=== PATIENT | male | born 1950 | race Caucasian/White ===

== ENCOUNTER 2023-02-06 00:37 | Emergency (ER) | payer MEDICARE, BC, SELFPAY ==
[2023-02-06 00:43] VITALS: BP 145/78; PULSE 74; RESP 18; TEMP 36.6; O2SAT 99; BMI 30.1
--- NOTE | 2023-02-06 01:01 | ED_ITS ---
HPI - General Adult General Date Seen: 02/06/23 Chief complaint: Skin/Abscess/Foreign Body Stated complaint: skin redness Time Seen by Provider: 02/06/23 00:48 Source: patient Mode of arrival: ambulatory Limitations: no limitations History of Present Illness HPI narrative: Patient is a 72-year-old male here for evaluation of rash. I saw him 1 month ago when he had found a tick attached for an indeterminate amount of time. He believe this to be a wood tick, but had some redness around the bite and was concerned about possible Lyme. I gave him prophylactic doxycycline and did do Lyme testing which was negative. That redness resolved. Tonight he says at bedtime he developed redness on his right forearm in the general vicinity of where that tick bite was, associated with splotchy redness on his feet and a line across his lower abdomen. All these areas were itchy. The feet have improved. He has some spots on his arms and hands as well though the hands are not itchy. He does say his hands feel kind of tight. No breathing difficulties. No exposures or new products that he is aware of. He used some topical Benadryl at home which was somewhat helpful. Related Data Home Medications Medication Instructions Recorded Confirmed atorvastatin 20 mg tablet 20 mg PO QPM 01/09/23 01/09/23 lisinopril 40 mg tablet 40 mg PO DAILY 01/09/23 01/09/23 metoprolol succinate 25 mg 25 mg PO DAILY 01/09/23 01/09/23 tablet,extended release 24 hr oxymetazoline 0.05 % nasal spray 2 spray intranasal BID 01/09/23 01/09/23 (12 Hour Nasal Relief Sweeny) Allergies Allergy/AdvReac Type Severity Reaction Status Date / Time No Known Drug Allergies Allergy Verified 02/06/23 00:45 [facility] Social History Smoking Status: Never smoker Do you use any of these nicotine containing products: Smokeless Tobacco Second hand tobacco smoke exposure: No How often do you have a drink containing alcohol: monthly or less AUDIT-C Alcohol total score: 1 Non-prescribed substance use: denies use Exam Narrative: Exam Narrative: Vital signs reviewed In general, alert, nontoxic male. ENT: Mucous membranes moist. No intraoral lesions. Lungs: Clear. Breathing easily. Skin: He has a raised erythematous rash, plaque like, most notable over the right forearm but scattered patches on his upper extremities bilaterally including the left forearm and elbow. He has a few small areas of redness on his palms which are not raised. He has a linear area that is raised and slightly red exactly across his lower abdomen where his underwear hits. I do not see any evidence of burrowing on his hands. Const: Vital Signs, click to edit/add: Vital Signs - 24 hr 02/06/23 00:43 Temperature 97.8 F Pulse Rate [Right Pulse Oximeter] 74 Respiratory Rate 18 Blood Pressure [Ri ght Upper Arm] 145/78 H Pulse Oximetry 99 Oxygen Delivery Me thod Room Air Documenting provider has reviewed patient's vital signs: yes Course Course Hospital Course: At this point etiology of this rash is not entirely clear to me, some parts of it look hive-like although he has other areas such as on the palms of his hands which are not raised and do not look like urticaria at this point. The area on his abdomen is very linear and looks more like a contact reaction. Scabies is considered but felt to be unlikely. Reviewed with him that based on his very low risk exposure a month ago with the tick and negative Lyme testing that I think this likely does not represent Lyme disease. I do not see anything that looks consistent with erythema migrans. The area on his right forearm is amorphous in shape, not round nor targetoid. For now I suggested symptomatic treatment well we see how he does over the next couple of days. If this is not resolving then I would like him to follow up in clinic for repeat evaluation. Return at any time for worsening. Vital Signs Vital signs: Initial Vital Signs Temperature 97.8 F 02/06/23 00:43 Temperature Source Temporal Artery Scan 02/06/23 00:43 Pulse Rate 74 02/06/23 00:43 Respiratory Rate 18 02/06/23 00:43 Blood Pressure 145/78 H 02/06/23 00:43 Blood Pressure Mean 100 02/06/23 00:43 Blood Pressure Position Sitting 02/06/23 00:43 Pulse Oximetry 99 02/06/23 00:43 Oxygen Delivery Method Room Air 02/06/23 00:43 Vital Signs Temperature 97.8 F 02/06/23 00:43 Pulse Rate 74 02/06/23 00:43 Respiratory Rate 18 02/06/23 00:43 Blood Pressure 145/78 H 02/06/23 00:43 Pulse Oximetry 99 02/06/23 00:43 Oxygen Delivery Method Room Air 02/06/23 00:43 Temperature 97.8 F 02/06/23 00:43 Pulse Rate 74 02/06/23 00:43 Respiratory Rate 18 02/06/23 00:43 Blood Pressure 145/78 H 02/06/23 00:43 Pulse Oximetry 99 02/06/23 00:43 Oxygen Delivery Method Room Air 02/06/23 00:43 Discharge Plan Discharge Clinical Impression: Dermatitis Patient Disposition: Home, Self-Care Condition: Stable Instructions: Dermatitis (ED) Additional Instructions: Benadryl 4 times daily or a nonsedating antihistamine such as Zyrtec 1-2 times daily. If not improving over the next 1-2 days, follow up in clinic. Return at any time for worsening such as development of blisters, fever, etcetera. Prescriptions: No Action atorvastatin 20 mg tablet 20 mg PO QPM metoprolol succinate 25 mg tablet extended release 24 hr 25 mg PO DAILY lisinopril 40 mg tablet 40 mg PO DAILY oxymetazoline [12 Hour Nasal Relief Sweeny] 0.05 % spray,non-aerosol 2 spray intranasal BID Follow Up/Referrals: Provider,Not a Local [Primary Care Provider] - Stand Alone Forms: [employer] Info Instructions
[2023-02-06] MEDS: diphenhydrAMINE 25 MG CAPSULE 50 MG PO (01:08)
[2023-02-06 01:14] VITALS: BP 135/74; PULSE 84; RESP 18; TEMP 36.7; O2SAT 99
== END 2023-02-06 01:13 | disposition home or self-care (01) ==
PROVIDERS: Emergency Provider Emergency Medicine
DX: L30.9 Dermatitis, unspecified (principal)
CPT/HCPCS: 99282; 99283; A9270

== ENCOUNTER 2024-01-02 07:53 | Outpatient (RCR) | payer MEDICARE, BC, SELFPAY | END 2024-05-01 23:59 | disposition home or self-care (01) | PROVIDERS: Visit Provider Physician Assistant Medical | DX: Z53.20 Procedure and treatment not carried out because of patient's decision for unspecified reasons (principal) ==

== ENCOUNTER 2024-05-11 07:51 | Outpatient (CLI) | payer MEDICARE, BC, SELFPAY | END 2024-05-11 07:52 | disposition home or self-care (01) | LOC: INJ CL 07:53 | PROVIDERS: PCP Physician Assistant Medical; Visit Provider Family Medicine | DX: M54.16 Radiculopathy, lumbar region (principal); M51.36 Other intervertebral disc degeneration, lumbar region | CPT/HCPCS: 62323; J0702; Q9966 ==

== ENCOUNTER 2025-02-21 08:39 | Emergency (ER) | payer MEDICARE, BC, SELFPAY ==
--- OUTSIDE RECORDS SUMMARY | 2025-02-21 08:41 | XMS_ITS | Clinical Summary ---
Author Organization [facility] Address [address] [place] [id number] Care Team Providers Care Facilities Project Manager Name Role Phone Jesi Wen Primary Care Provider Allergies Active Allergy Reactions Criticality Noted Date Comments Amlodipine Rash 03/05/2019 Niacin *Unknown 02/04/2016 Bupropion *Unknown 02/04/2016 Medications multivitamin (MVI) tablet Take 1 tablet by mouth once daily. 0 6 Active aspirin (ECOTRIN) 81 mg enteric coated tablet Take 1 tablet by mouth once daily with a meal. 0 6 Active atorvastatin (LIPITOR) 40 mg tabletIndications: Other hyperlipidemia Take 1 Tablet (40 mg) by mouth at bedtime. 90 Tablet 3 4 Active metoprolol succinate (TOPROL XL) 25 mg Sustained-Release tabletIndications: HTN (hypertension) Take 1 Tablet (25 mg) by mouth once daily. 90 Tablet 3 4 Active oxymetazoline (Afrin, oxymetazoline,) 0.05 % nasal spray Inhale 1 [place] into affected nostril(s) two times daily. Active WalkerIndications: Postoperative pain after spinal surgery Walker with front wheels for home use for 3 months. 1 Each 4 Active lisinopriL (PRINIVIL; ZESTRIL) 40 mg tabletIndications: Secondary hypertension with goal blood pressure less than 140/90 Take 1 Tablet (40 mg) by mouth once daily. 90 Tablet 3 4 Active hydroCHLOROthiazid e 25 mg tabletIndications: HTN (hypertension) Take 1 Tablet (25 mg) by mouth once daily. 90 Tablet 1 5 Active hydroCHLOROthiazid e 25 mg tabletIndications: HTN (hypertension) Take 1 Tablet (25 mg) by mouth once daily. 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 06/16/2016 Hypercalcemia 02/05/2016 Basal cell carcinoma 02/05/2016 HTN, goal below 140/90 Hyperlipidemia Family history of colon cancer Overview (02/04/2016): father Allergic rhinitis Tobacco user Overview (02/04/2016): chewing tobacco since 1979, uses two tins/week Resolved Problems Problem Noted Date Diagnosed Date Resolved Date HTN, goal below 140/90 02/03 Encounters Date Type Department Care Team Description 02/03/2025 Refill [facility] [address] [place] [address] Jesi Wen PA Refill Request (Hydrochlorothiazide) from Last 3 Months Immunizations Immunization Administration Dates Next Due Amb Influenza, Inact (High-d ose Quadrivalent) (Flu Clinic Only) 05/21/2020 Dtap Unspecified Formulation 08/01/2008 Influenza, High-dose Inactivated 019,06/09/2018,05/19/2017,2015 Influenza, High-dose Quadriv alent Inactivated 05/17/2023,05/13/2022,05/22/2021 Influenza, Inactivated IIV3 (Age 65+ Years) Preserv Free 06/08/2024 Pneumococcal Poly,23-Valent (Pneumovax) 02/14/2018 Pneumococcal conj 13-Valent (Prevnar 13) 02/02/2017 Tdap 03/28/2023 Tdap, Unspecified 08/01/2008 Zoster (Shingrix-RZV, recombinant) 06/12/2023, Zoster (Zostavax-ZVL, live) 02/16/2011 Family History Medical History Relation Name Comments Cancer Brother 1 lung cancer Diabetes Brother 2 likely secondar y to lung cancer treatment Cancer-colon Father Diabetes Mother Heart Disease Mother Relation Name Status Comments Brother 1 Brother 2 Father colon cancer Mother heart disease, diabetes Social History Tobacco Use Types Packs/Day Years Used Date Smoking Tobacco: Former Cigarettes 1.5 15 0 02/02/1966 - 02/02/1979 Smokeless Tobacco: Current Snuff, Chew Tobacco Cessation:Ready to Q uit: Not Asked; Counseling Given: Not Answered Comments:none since Tuesday Alcohol Use Standard Drinks/Week Comments Yes 7 (1 standard drink = 0.6 oz pur e alcohol) PHQ-2 Answer Date Recorded PHQ-2 TOTAL SCORE 0 04/16/2024 Social Connections Answer Date Recorded Do you often feel lonely or isolated from those around you? 0 08/13/2024 Financial Resource Strain Answer Date R ecorded Difficulty of Paying Living Expenses 3 04/16/2024 Difficulty of Paying Living Expenses Not on file 04/16/2024 Food Insecurity Answer Date Recorded Do you worry your food will run out before you are able to buy more? 1 08/13/2024 Transportation Needs Answer Date Record ed Does lack of transportation keep you from medica l appointments? 1 08/13/2024 Does lack of transportation keep you from work, meetings or getting things that you need? 1 08/13/2024 Housing Stability Answer Date Recorded What is your housing situation today? 1 08/13/2024 Interpersonal Safety Answer Date Record ed Are you being hit, kicked, p ushed or yelled at (see row info)? No 08/13/2024 Interpersonal Safety Abuse 12 - 18 Not on file 08/13/2024 Interpersonal Safety Ambulatory Vulnerability No t on file 08/13/2024 Utilities Answer Date Recorded Do you have trouble paying f or utilities (for example, heat, electricity, water, phone)? 1 08/13/2024 Sex and Gender Information Value Date Recorded Sex Assigned at Not on file Legal Sex Male 10:50 AM CDT Gender Identity Not on file Sexual Orientation Not on file Occupation Industry Job Start Date Job End Date retired Not on file Not on file Not on file Obstetrics History Last Filed Vital Signs Vital Sign Reading Time Taken Comments Blood Pressure 138/80 09/21/2024 8:29 AM EXT JS DEVELOPER Pulse 66 09/21/2024 8:13 AM EXT JS DEVELOPER Temperature 36.7 C (98 F) 08/14/2024 12:00 PM EXT JS DEVELOPER Respiratory Rate 16 08/14/2024 12:00 PM EXT JS DEVELOPER Oxygen Saturation 99% 08/21/2024 9:41 AM EXT JS DEVELOPER Inhaled Oxygen Concentration - - Weight 80.7 kg (178 lb) 09/21/2024 8:11 AM EXT JS DEVELOPER Height 157.5 cm (5' 2) 08/13/2024 10:31 AM EXT JS DEVELOPER Body Mass Index 32.56 08/13/2024 10:31 AM EXT JS DEVELOPER Plan of Treatment Health Maintenance Due Date Last Done Comments RSV vaccine for adults or (1 - 1-dose 75+ series) 2024 COVID-19 vaccine series (2023- season) 2024 06/08/2024, 05/25/2023, 06/04/2022, Additional history exists Colonoscopy through age 75 04/10/202504/10, 04/10/2020, 04/10/2020, Additional history exists Depression screening for age 12+ 04/16/2025 04/16/2024, 04/16/2024, 04/13/2023, Additional history exists Medicare Wellness for age 65+ 04/17/2025 04/16/2024, 04/13/2023, 04/12/2022, Additional history exists BMI (ht and wt on same day) for age 18+ 08/06/2025 08/06/2024, 04/16/2024, 04/12/2022, Additional history exists Lipids for age 45-75 04/16/2029 04/16/2024, 04/13/2023, 04/12/2022, Additional history exists Tetanus booster 03/28/2033 03/28/2023, 08/01/2008 Hepatitis C screening for age 18-79 Completed 02/04/2016 Pneumococcal series for age 50+ Completed 02/14/2018, 02/02/2017 ([place]) Tdap Completed 03/28/2023, 08/01/2008 Zoster (shingles) series for age 50+ Completed 06/12/2023, 04/11/2023, 02/16/2011 Influenza Vaccine Completed 06/08/2024, , 05/25/2019, Additional history exists Hepatitis B series for 19+ Aged Out N o longer eligible based on patient's age to complete this topic Procedures Procedure Name Priority Date/Time Associated Diagnosis Comments LIPID PANEL W REFLEX MEASURED LDL Routine 04/16/2024 9:07 AM CDT Other hyperlipidemia COLONOSCOPY SCREENING Routine 04/10/2020 9:57 AM CDT History of colon polyps ANTI HCV Routine 02/04/2016 9:24 AM CDT Need for hepatitis C screening test from Last 3 Months or Most Recently Relevant to Health Maintenance Results * LIPID PANEL W REFLEX MEASURED LDL (04/16/2024 9:07 AM CDT) CHOLESTEROL,TOTAL 151 100 - 199 mg/dL 04/16/2024 6:58 PM CDT [facility] Comment: Cholesterol, Total Reference Ranges Desirable <200 mg/dL Borderline 200-239 mg/dL High >=240 mg/dL TRIGLYCERIDES 110 <150 mg/dL 04/16/2024 6:58 PM CDT [facility] HDL CHOLESTEROL 56 >40 mg/dL 6:58 PM CDT [facility] NON-HDL CHOLESTEROL 95 <145 mg/dl 04/16/2024 6:58 PM CDT [facility] CHOL/HDL RATIO 2.70 <4.50 04/16/2024 6:58 PM CDT [facility] LDL CHOLESTEROL 73 <=130 mg/dL 04/16/2024 6:58 PM CDT [facility] VLDL CHOLESTEROL 22 <=30 mg/dL 04/16/2024 6:58 PM CDT [facility] PROVIDER ORDERED STATUS RANDOM 04/16/2024 6:58 PM CDT [facility] Blood BLOOD SPECIMEN / Unknown Venipuncture / Unknown 04/16/2024 9:07 AM CDT 04/16/2024 9:07 AM CDT Jesi SEPULVEDA CHEMISTRY Final R esult Performing Organization Address City/[facility]/ZIP Co de Phone Number [facility] [address] [place] [address], * COLONOSCOPY SCREENING (04/10/2020 9:57 AM CDT) Jesi SEPULVEDA GI PROCEDURE ORD Final Result * ANTI HCV [51080.2] (02/04/2016 9:24 AM CDT) HEPATITIS C ANTIBODY Non-Reacti ve Non-Reacti ve 02/04/2016 3:20 PM CDT [facility] Blood specimen (specimen) BLOOD SPECIMEN / Unknown Venipuncture / Unknown 02/04/2016 9:24 AM CDT 02/04/2016 9:24 AM CDT Narrative [facility] - 02/04/2016 3:20 PM CDT Antibodies to HCV not detected; does not exclude the possibility of exposure to HCV. Sandhya Walden MD SEND OUTS Final Resu lt Performing Organization Address City/[facility]/ZIP Co de Phone Number [facility] [address] [place] [address], from Last 3 Months or Most Recently Relevant to Health Maintenance Insurance [employer] BLUE MR PB ONLY MEDICARE PART B HB ONLY MEDICARE PART A HB ONLY [employer] BLUE HB ONLY Advance Directives * Full Code (Latest Code Status on File) Date Activated Date Inactivated Comments 08/13/2024 5:10 PM 08/14/2024 4:30 PM Question Answer Comments Code Status Discussion: Other * Full Code Date Activated Date Inactivated Comments 08/13/2024 10:07 AM 08/13/2024 5:10 PM Question Answer Comments Code Status Discussion: Unable to Assess Preferences, Provider to review later Care Teams Facilities Project Manager Relationship Specialty Start Date End Date Jesi Wen [place] [address] [place] [address] PCP - General Physician Loss Prevention Operations Manager 02/14/18
[2025-02-21 08:42] VITALS: BP 163/76; PULSE 101; RESP 16; TEMP 36.6; O2SAT 98; BMI 32.0
--- NOTE | 2025-02-21 08:55 | ED.GENADULT ---
HPI - General Adult General Chief complaint: Insect Bite Stated complaint: wood thick bite, is concern about the thick bite Time Seen by Provider: 02/21/25 08:49 Source: patient Mode of arrival: ambulatory Limitations: no limitations History of Present Illness HPI narrative: Leticia 74-year-old male presenting today with a rash after a tick bite. Patient pulled a tick off of his mons pubis 2 days ago and has since noticed a rash. Denies systemic symptoms. Related Data Home Medications ?Medication ?Instructions ?Recorded ?Confirmed lisinopril 40 mg tablet 40 mg PO DAILY 01/09/23 02/21/25 metoprolol succinate 25 mg 25 mg PO DAILY 01/09/23 02/21/25 tablet,extended release 24 hr oxymetazoline 0.05 % nasal spray 2 spray intranasal BID 01/09/23 01/09/23 (12 Hour Nasal Relief Ada) aspirin 81 mg tablet,delayed 81 mg PO DAILY 02/21/25 02/21/25 release (Adult Aspirin Regimen) atorvastatin 40 mg tablet 40 mg PO QPM 02/21/25 02/21/25 hydrochlorothiazide 25 mg tablet 25 mg PO DAILY 02/21/25 02/21/25 Previous Rx's ?Medication ?Instructions ?Recorded doxycycline hyclate 100 mg capsule 100 mg PO BID 10 days #20 caps 02/21/25 Allergies Allergy/AdvReac Type Severity Reaction Status Date / Time No Known Drug Allergies Allergy Verified 02/21/25 08:46 Review of Systems Status of ROS: Reports: 6 or more systems reviewed and unremarkable except as noted in History and below [facility] Medical History Basal cell carcinoma ?C44.91 - Basal cell carcinoma of skin, unspecified (ICD-10) Hypercalcemia ?E83.52 - Hypercalcemia (ICD-10) Thrombophlebitis of superficial veins of right lower extremity ?I80.01 - Phlebitis and thrombophlebitis of superficial vessels of right lower extremity (ICD-10) Umbilical hernia without obstruction and without gangrene ?K42.9 - Umbilical hernia without obstruction or gangrene (ICD-10) Former tobacco use ?Z87.891 - Personal history of nicotine dependence (ICD-10) Hyperlipidemia ?E78.5 - Hyperlipidemia, unspecified (ICD-10) HTN (hypertension) ?I10 - Essential (primary) hypertension (ICD-10) History of colon polyps ?Z86.010 - Personal history of colonic polyps (ICD-10) Crush injury ?T14.8XXA - Other injury of unspecified body region, initial encounter (ICD-10) Allergic rhinitis ?J30.9 - Allergic rhinitis, unspecified (ICD-10) Surgical History History of colonoscopy ?Z98.890 - Other specified postprocedural states (ICD-10) History of appendectomy ?Z90.49 - Acquired absence of other specified parts of digestive tract (ICD-10) Social History Smoking Status: Former smoker Do you use any of these nicotine containing products: Smokeless Tobacco Second hand tobacco smoke exposure: No How often do you have a drink containing alcohol: monthly or less AUDIT-C Alcohol total score: 1 Non-prescribed substance use: denies use Exam Narrative: Exam Narrative: Well-nourished well-developed patient in no acute distress. Alert and oriented. Answers questions appropriately. Patient has a bull's-eye rash consistent with erythema migrans on the left mons pubis. Const: Vital Signs, click to edit/add: Vital Signs - 24 hr 02/21/25 08:42 Temperature 97.8 F Pulse Rate [Right Pulse Oximeter] 101 H Respiratory Rate 16 Blood Pressure [Ri ght Upper Arm] 163/76 H Pulse Oximetry 98 Oxygen Delivery Me thod Room Air Course Vital Signs Vital signs: Initial Vital Signs Temperature 97.8 F 02/21/25 08:42 Temperature Source Temporal Artery Scan 02/21/25 08:42 Pulse Rate 101 H 02/21/25 08:42 Pulse Rhythm Regular 02/21/25 08:42 Pulse Strength 3+ Normal 02/21/25 08:42 Respiratory Rate 16 02/21/25 08:42 Blood Pressure 163/76 H 02/21/25 08:42 Blood Pressure Mean 105 02/21/25 08:42 Blood Pressure Position Sitting 02/21/25 08:42 Pulse Oximetry 98 02/21/25 08:42 Oxygen Delivery Method Room Air 02/21/25 08:42 Vital Signs Temperature 97.8 F 02/21/25 08:42 Pulse Rate 101 H 02/21/25 08:42 Respiratory Rate 16 02/21/25 08:42 Blood Pressure 163/76 H 02/21/25 08:42 Pulse Oximetry 98 02/21/25 08:42 Oxygen Delivery Method Room Air 02/21/25 08:42 Temperature 97.8 F 02/21/25 08:42 Pulse Rate 101 H 02/21/25 08:42 Respiratory Rate 16 02/21/25 08:42 Blood Pressure 163/76 H 02/21/25 08:42 Pulse Oximetry 98 02/21/25 08:42 Oxygen Delivery Method Room Air 02/21/25 08:42 Medical Decision Making MDM Narrative Medical decision making narrative: 74-year-old male with erythema migrans status post tick bite. Will treat with doxycycline for 10 days. Discharge Plan Discharge Clinical Impression: Tick bite Patient Disposition: Home, Self-Care Condition: Stable Additional Instructions: Take all antibiotics as instructed. Take on a full stomach and avoid sun exposure. Prescriptions: New doxycycline hyclate 100 mg capsule 100 mg PO BID 10 Days Qty: 20 0RF No Action metoprolol succinate 25 mg tablet extended release 24 hr 25 mg PO DAILY lisinopril 40 mg tablet 40 mg PO DAILY oxymetazoline [12 Hour Nasal Relief Ada] 0.05 % spray,non-aerosol 2 spray intranasal BID atorvastatin 40 mg tablet 40 mg PO QPM hydrochlorothiazide 25 mg tablet 25 mg PO DAILY aspirin [Adult Aspirin Regimen] 81 mg tablet,delayed release (DR/EC) 81 mg PO DAILY Follow Up/Referrals: Jesi Wen PA-C [Primary Care Provider, Family Practice] Stand Alone Forms: [employer] Info Instructions
== END 2025-02-21 09:05 | disposition home or self-care (01) ==
LOC: ED 09:04
PROVIDERS: Emergency Provider Family Medicine; PCP Physician Assistant Medical
DX: S30.861A Insect bite (nonvenomous) of abdominal wall, initial encounter (principal); A69.20 Lyme disease, unspecified
CPT/HCPCS: 99283; 99284